=== PATIENT | male | born 1955 | race Caucasian/White ===

== ENCOUNTER 2018-08-08 22:43 | Emergency (ER) | payer OTHER ==
--- NOTE | 2018-08-08 22:58 | ER Document Report ---
ED General - General Chief Complaint: Chest Pain > 30 Stated Complaint: CHEST PAIN Time Seen by Provider: 08/08/18 22:54 Notes: Patient is a 63-year-old male with a history of coronary disease as well as aortic aneurysm. He has a history of a 4.6 cm aortic [facility] No surgery on in the past. He does have history of coronary bypass surgery. They did 2 vessel bypass but was told that he probably needs three-ves ingrid bypass but they are unable to graft harvesting of graft to do this. Presents with severe chest pain is starts substernally and radiates to his back and down his right arm. Says feels similar to his previous heart attack. He says it started yesterday but became much more severe today and is unrelenting. He has not taken nitro at home. He is noncompliant with his medications. He is on clopidogrel but does not take it. He is on propanolol. He said he did take this today. TRAVEL OUTSIDE OF THE [place] IN LAST 30 DAYS: No - Related Data Allergies/Adverse Reactions: No Known Allergies Allergy (Verified 10/03/15 02:41) Past Medical History - Social History Smoking Status: Current Every Day Smoker Frequency of alcohol use: None Drug Abuse: None Family History: Reviewed & Not Pertinent - Past Medical History Cardiac Medical History: Reports: Hx Coronary Artery Disease, Hx DVT, Hx Heart Attack, Hx Hypercholesterolemia, Hx Hypertension, Hx Peripheral Vascular Disease Past Surgical History: Reports: Hx Coronary Artery Bypass Graft, Hx Open Heart Surgery - Immunizations Hx Diphtheria, Pertussis, Tetanus Vaccination: Yes Review of Systems - Review of Systems Notes: My Normal Review Basic REVIEW OF SYSTEMS: CONSTITUTIONAL : Denies fever, chills, or sweats. Denies recent illness. Cardiovascular: Severe chest pain rating to the back. RESPIRATORY: Denies cough, cold, or chest congestion. Denies shortness of breath, difficulty breathing, or wheezing. GASTROINTESTINAL: Denies abdominal pain. Denies nausea, vomiting, or diarrhea. Denies constipation. Last BM: GENITOURINARY: Denies difficulty urinating, painful urination, burning, frequency, or blood in urine. MUSCULOSKELETAL: Denies neck or back pain or joint pain or swelling. SKIN: Denies rash or skin lesions. NEUROLOGICAL: Denies altered mental status or loss of consciousness. Denies headache. Denies weakness or paralysis or loss of use of either side. Denies problems with gait or speech. Denies sensory or motor loss. ALL OTHER SYSTEMS REVIEWED AND NEGATIVE. Physical Exam - Vital signs Vitals: Temp Pulse Resp BP Pulse Ox 97.8 F 81 20 180/120 H 99 08/08/18 22:47 08/08/18 22:47 08/08/18 22:47 08/08/18 22:47 08/08/18 22:47 - Notes Notes: General Appearance: Well nourished, alert, cooperative, no acute distress, moderate obvious discomfort. Vitals: reviewed, See vital signs table. Eyes: PERRL, EOMI, Conjuctiva clear Chest wall: No reproducible pain to palpation of chest wall. Sternal scar from previous coronary bypass surgery. Mouth: No decreasd moisture Lungs: No wheezing, No rales, No rhonci, No accessory muscle use, good air exchange bilaterally. Heart: Normal rate, Regular rythm, No murmur, no rub Abdomen: Normal BS, soft, No rigidity, No abdominal tenderness, No guarding, no rebound Extremities: good pulses in all extremities, no swelling or tenderness in the extremities, no edema. Skin: warm, dry, appropriate color, no rash Neuro: speech clear, oriented x 3, normal affect, responds appropriately to questions. Course - Re-evaluation Re-evalutation: 08/08/18 23:07 Patient has a history of a 4.6 cm aortic aneurysm. He has pain in his chest rating to his back. I have already spoke with iv technician they have informed him that I do not want to wait on labs and want him to go straight to CT scanner. Nurses placing antecubital IV now and the patient will be taken straight to CT scan to rule out dissection. 08/08/18 23:[address] scan does not show evidence of obvious dissection. He is had some slight improvement the nitro however he still in severe pain is still writhing in the bed and pain and therefore I will give him some morphine to help calm down his pain. Once I get the official read that there is no evidence of dissection we will give him a dose of aspirin. 08/09/18 00:03 Patient continues to have a lot of pain on exam. His blood pressure continues to be high. I will switch him over to a nitro drip. I will order more pain medication. His CT scans is negative for dissection or rupture and therefore aborted aspirin. His aneurysm is now 5 cm. I will start the nitro drip and see if this gets better control of his blood pressure as well as his pain. Plan to see how he responds that I will call and speak with [facility] about transfer to fill the patient's better served at a facility that has both cardiac cath capabilities as well as vascular to further evaluate his aneurysm as a potential cause of his pain. 08/09/18 00:33 Patient's pain is improving with the nitro drip. Blood pressure is steadily improving as well. I will continue monitor patient make sure his blood pressure and pain continue to improve. 08/09/18 01:11 I have called [facility] and waiting to hear back from the hospitalist. 08/09/18 01:24 On reevaluation patient continues to feel improved with nitro drip. I did call and speak with Dr. Michaud, [facility], who agrees to accept the patient. We do suspect that there will be her weight. I think it transfer is appropriate for this patient's patient does have an enlarging aortic aneurysm and also has chest pain is only controlled with a nitro drip. This puts him outside of our criteria to be able to keep and do a cath here as intractable chest pain is an indication for transfer our hospital's Criteria as he is high risk and will likely have a positive heart catheterization. I will order repeat troponin. We will continue monitor patient closely. If troponin elevates then will consider given Lovenox. 08/09/18 03:52 I spoke with [facility] to patient's repeat troponin is come back elevated. I updated make them aware the troponin is now significantly elevated. Patient's pain seems to continue to be well controlled with the nitro. Blood pressure continues to be improved with nitro drip. Diastolic pressure still little high but systolic pressure is much improved and has been staying mainly in the 130s. I have ordered Lovenox. Have ordered scheduled clopidogrel. Of ordered metoprolol to keep his heart rate under control. I have also ordered daily aspirin as well as simvastatin. I informed the patient and his of the plan and they are agreeable to it. 08/09/18 04:27 [facility] continues to say they would be a long delay before transfer. I therefore called [facility]. Patient had his previous coronary bypass surgery at [facility]. The says she is that she would be happy for him to go to [facility]. I spoke with the cardiac connection transfer center. They call me back and said the patient has been accepted by Dr. Bienvenido Castillo and they already have a bed assignment. Once I know that we have arranged for transport I will called [facility] cancel him off the waiting list there. 08/09/18 04:42 Patient started having some recurrence of pain. Nitro drip is already 65 mcg/minute. I will give a small dose of morphine. Says his pain is still nothing like it was when he first arrived however I want to keep his pain under control therefore give him small dose of morphine so he stays relaxed. 08/09/18 05:58 She is pain is improved. He is resting comfortably. Heart rate is 94. He is due for metoprolol dose at 8 AM. I did order a repeat troponin to be drawn in approximately an hour. Patient has Lovenox and Plavix orders written. He is scheduled to have transport to be here at 9:30 AM. Patient currently stable and will continue to be closely monitored until transport arrives. Dictation of this chart was performed using voice recognition software; therefore, there may be some unintended grammatical errors. - Vital Signs Vital signs: Temp Pulse Resp BP Pulse Ox 98.3 F 81 11 L 143/104 H 96 08/09/18 02:49 08/08/18 22:47 08/09/18 05:30 08/09/18 05:30 08/09/18 05:30 - Laboratory Result Diagrams: 08/08/18 23:09 08/08/18 23:09 Laboratory results interpreted by me: 08/08/18 08/08/18 23:09 23:09 WBC 13.8 H Chloride 108 H Glucose 134 H - EKG Interpretation by Me Additional EKG results interpreted by me: 08/08/18 22:56 EKG is reviewed and interpreted by me. EKG shows sinus rhythm with a rate of 85 bpm. Patient has a new right bundle branch block and left anterior fascicular block in comparison to his old EKG from October 03, 2015. ST segment changes are as expected with these blocks. VT interval is within normal range. QRS duration and QT intervals are prolonged. 08/09/18 01:32 EKG #2 was reviewed and interpreted by me. EKG shows sinus rhythm with rate of 87 bpm. Patient still has right bundle branch block but left anterior fascicular block appears improved. No concerning no ST segment changes. VT interval is within normal range. QRS duration is improving but still prolonged as expected with a right bundle branch block. QTc interval is prolonged. Critical Care Note - Critical Care Note Total time excluding time spent on procedures (mins): 50 Comments: Critical care time for this patient not including time spent in procedures approximately 50 minutes due to frequent re-evaluations, management of an STEMI, management of hypertension, management of ongoing chest pain. Discharge - Discharge Clinical Impression: NSTEMI (non-ST elevated myocardial infarction) Chest pain Qualifiers: Chest pain type: unspecified Qualified Code(s): R07.9 - Chest pain, unspecified Hypertension Qualifiers: Hypertension type: unspecified Qualified Code(s): I10 - Essential (primary) hypertension Aortic aneurysm Qualifiers: Aortic location: abdominal aorta Presence of rupture: without rupture Qualified Code(s): I71.4 - Abdominal aortic aneurysm, without rupture Condition: Stable Disposition: [facility] Referrals: MARLENE JOHN MD [Primary Care Provider] - Follow up as needed
[2018-08-08] MEDS ORDERED: NITROGLYCERIN 0.4 MG/TAB 25 TAB/BOTTLE ONE (23:03)
[2018-08-08] MEDS ORDERED: NORMAL SALINE 1000 ML 1,000 ML IV ONE (23:05)
[2018-08-08] MEDS ORDERED: NITROGLYCERIN 0.4 MG/TAB 25 TAB/BOTTLE SL PRN (23:05)
[2018-08-08] MEDS ORDERED: NITROGLYCERIN 2% OINTMENT 1 GM PACKET TP ONE (23:05)
[2018-08-08 23:26] LABS: ABSOLUTE BASOPHILS # (AUTO) 0.1 10^3/uL (0.0-0.2); ABSOLUTE EOSINOPHILS # (AUTO) 0.3 10^3/uL (0.0-0.6); ABSOLUTE LYMPHOCYTES (AUTO) 4.2 10^3/uL (0.5-4.7); ABSOLUTE MONOCYTES (AUTO) 1.2 10^3/uL (0.1-1.4); HEMATOCRIT 44.9 % (37.9-51.0); HEMOGLOBIN 15.4 g/dL (13.5-17.0); LYMPHOCYTES % (AUTO) 30.4 % (13-45); MEAN CORPUSCULAR HGB CONC 34.3 g/dL (32.0-36.0); MEAN CORPUSCULAR VOLUME 93 fl (80-97); PLATELET COUNT 246 10^3/uL (150-450); RED BLOOD COUNT 4.81 10^6/uL (4.35-5.55); RED CELL DISTRIBUTION WIDTH 13.5 % (11.5-14.0); SEGMENTED NEUTROPHILS % (AUTO) 57.6 % (42-78); TOTAL CELLS COUNTED % (AUTO) 100 %; WHITE BLOOD COUNT 13.8 10^3/uL (4.0-10.5)
[2018-08-08] MEDS ORDERED: MORPHINE SULFATE 10 MG/ML INJ IV ONE (23:29)
[2018-08-08 23:37] LABS: ALANINE AMINOTRANSFERASE 46 U/L (21-72); ALBUMIN 4.4 g/dL (3.5-5.0); ALKALINE PHOSPHATASE 74 U/L (38-126); ANION GAP 8 (5-19); ASPARTATE AMINO TRANSFERASE 33 U/L (17-59); BILIRUBIN,DIRECT 0.2 mg/dL (0.0-0.4); BILIRUBIN,TOTAL 0.8 mg/dL (0.2-1.3); BLOOD UREA NITROGEN 15 mg/dL (7-20); CARBON DIOXIDE 26 mmol/L (22-30); CHLORIDE 108 mmol/L (98-107); GLUCOSE 134 mg/dL (75-110); SODIUM 141.9 mmol/L (137-145); TOTAL PROTEIN 7.1 g/dL (6.3-8.2)
--- NOTE | 2018-08-08 23:54 | RADIOLOGY REPORT (SQ) ---
EXAM DESCRIPTION: CT CHEST ANGIOGRAPHY WITHOUT THEN WITH IV CONTRAST, CT ABDOMEN PELVIS WITHOUT THEN WITH IV CONTRAST COMPLETED DATE/TME: 08/08/2018 23:04 CLINICAL HISTORY: 63 years Male, R/O aortic disection Comparison: None. Technique: Pre and post IV contrast. Coronal and sagittal reformat. 3d reconstruction. This exam was performed according to our departmental dose-optimization program, which includes automated exposure control, adjustment of the mA and/or kV according to patient size and/or use of iterative reconstruction technique.[facility]: Dose Right [facility]: CareDose [facility]: Dose Right [facility]: Teradose 4D [facility]: MaulSoup LIMITATIONS: None Findings: 2.3 cm, 35-HU exophytic left renal lesion probably due to a hemorrhagic cyst; differential diagnosis includes renal neoplasm. Recommend further evaluation with multiphase contrast CT or MRI of the renal system. Infrarenal abdominal aortic aneurysm measures 5.0 x 4.9 cm and transverse diameters. Vascular consultation recommended. Right external iliac arterial stent. Right common iliac arterial stent. Vascular system appears intact. No evidence of dissection, or occlusion. No significant embolus. No active hemorrhage/hematoma. No pulmonary embolus. No right ventricular strain. Clear lungs. Punctate pancreatic calcification consistent with chronic pancreatitis. Sternotomy. Coronary arterial calcification. Normal appendix. Atherosclerosis. Likely benign, low-attenuation hepatic lesion(s) not definitively characterized. Colonic diverticulosis. Degenerative disc disease. Bilateral perinephric fat stranding, nonspecific. Inferior neck, axillae, mediastinum, lungs, airway, lymphatics, heart, abdomen, pelvis, and musculoskeleton appear otherwise unremarkable. Impression: 1. Infrarenal abdominal aortic aneurysm measures 5.0 x 4.9 cm and transverse diameters. No dissection. Vascular consultation recommended. 2. No pulmonary embolus. 3. A 2.3 cm, 35-HU exophytic left renal lesion may indicate a hemorrhagic cyst or other neoplasm. Recommend further evaluation with multiphase contrast CT or MRI of the renal system.
[2018-08-08] MEDS ORDERED: ASPIRIN 325 MG TABLET PO ONE (23:58)
[2018-08-09] MEDS ORDERED: NITROGLYCERIN/D5W 50 MG/250 ML RTUINJ IV PRN (00:02)
[2018-08-09] MEDS ORDERED: MORPHINE SULFATE 10 MG/ML INJ IV ONE ×3 (00:02→08:03)
[2018-08-09] MEDS ORDERED: CLOPIDOGREL BISULFATE 75 MG TABLET PO ONE (01:36)
[2018-08-09] MEDS ORDERED: ENOXAPARIN SODIUM INJ 80 MG/0.8 ML DISP.SYRIN SUBCUT SCH ×2 (03:30→04:00)
[2018-08-09] MEDS ORDERED: SIMVASTATIN 40 MG TABLET PO SCH ×2 (04:00→22:00)
[2018-08-09] MEDS ORDERED: SIMVASTATIN 40 MG TABLET PO ONE (04:00)
--- NOTE | 2018-08-09 07:20 | ER Document Report ---
Doctor's Note Notes: 08/09/18 07:18 Contacted [facility] to update related to patient's care, repeat troponin this morning is 17.6. Evaluated the patient at the bedside, he is comfortable well-appearing despite his persistently rising troponin. He is having an EKG repeated this morning. He is currently on a nitroglycerin infusion at a rate of 65 mics. They are doing a weather check at this time, reportedly they will perform a weather check and make a decision as to whether or not to fly this patient. If patient is unable to be flown he will be rapidly transported via ground. We will continue to monitor and reassess patient. 08/09/18 08:00 Patient to be transported via air, following weather check they have agreed that this patient will be flown. Currently this patient is on nitroglycerin infusion, he is on oxygen via nasal cannula. He has apparently stable for transport. He does risk arrhythmia worsening heart attack or other issue in transport.
--- NOTE | 2018-08-09 07:49 | EKG REPORT ---
SEVERITY:- ABNORMAL ECG - SINUS RHYTHM ATRIAL PREMATURE COMPLEX RIGHT BUNDLE BRANCH BLOCK AND LAFB = NEW NONSPECIFIC ST-T CHANGES DIFFUSE, NEW CLINICAL CORRELATION NEEDED. : Confirmed by: Beltran Vanegas MD 09-Aug-2018 07:48:33
--- NOTE | 2018-08-09 07:50 | EKG REPORT ---
SEVERITY:- ABNORMAL ECG - SINUS RHYTHM MULTIPLE ATRIAL PREMATURE COMPLEXES PROBABLE LEFT ATRIAL ABNORMALITY RBBB AND LAFB = NEW NONSPECIFIC ST-T CHANGES , DIFFUSE, NEW, COMPARED TO 10/01/15 EKG : Confirmed by: Beltran Vanegas MD 09-Aug-2018 07:50:10
[2018-08-09 08:16] VITALS: BP 132/95
[2018-08-09] MEDS ORDERED: ASPIRIN 325 MG TABLET PO SCH (10:00)
[2018-08-09] MEDS ORDERED: METOPROLOL TARTRATE 25 MG TABLET PO SCH (10:00)
[2018-08-09] MEDS ORDERED: CLOPIDOGREL BISULFATE 75 MG TABLET PO SCH (18:00)
== END 2018-08-09 08:27 | disposition short-term general hospital (02) ==
LOC: ER 22:43
DX: I21.4 Non-ST elevation (NSTEMI) myocardial infarction (principal); R07.9 Chest pain, unspecified; I10 Essential (primary) hypertension; I71.4 Abdominal aortic aneurysm, without rupture; I25.10 Atherosclerotic heart disease of native coronary artery without angina pectoris; E78.00 Pure hypercholesterolemia, unspecified; I25.2 Old myocardial infarction; Z86.718 Personal history of other venous thrombosis and embolism; Z95.1 Presence of aortocoronary bypass graft
CPT/HCPCS: 93005 ×2; 96376; 99291; 96372; 96361; 96375; 96365; 96366; 36415; 85025; 80053; 84484; 71275; 74174; 93010 ×2; J2270 ×2; J3490; J7030; J1650

== ENCOUNTER 2018-08-22 20:14 | Emergency (ER) | payer OTHER ==
[2018-08-22] MEDS ORDERED: FENTANYL CITRATE INJ/PF 100 MCG/2 ML AMPUL ONE (20:23)
[2018-08-22] MEDS ORDERED: MAGNESIUM SULFATE/D5W 0 GM/0 ML RTUPB IV ONE (20:23)
[2018-08-22] MEDS ORDERED: ASPIRIN 81 MG TABLET, CHEWABLE PO ONE (20:32)
--- NOTE | 2018-08-22 20:39 | ER Document Report ---
ED General - General Stated Complaint: AICD DISCHARGE Time Seen by Provider: 08/22/18 20:19 TRAVEL OUTSIDE OF THE [place] IN LAST 30 DAYS: No - HPI Notes: Patient is a 63-year-old male that presents to the emergency department for ch ief complaint of AICD firing. Patient states that he has been defibrillated twice today, once last night and once the day before. He had a pacemaker placed at [facility] last week after he had myocardial infarction which led to cardiac arrest. Patient is not sure what medications he is on. He is not sure if he is on any blood thinners. He states he is taking all the medicines prescribed to him as directed. He states he is having pain in the left side of his chest when the pacemaker fires. He was denying any pain in his chest otherwise. He states prior to defibrillation he starts to feel lightheaded and near syncopal. Patient states he had cardiac catheterization last week but stenting was not an option because he had small vessel disease. Past Medical History: Hypertension, hyperlipidemia, CAD Past Surgical History: CABG x2 Social History: Reviewed in chart Family History: Reviewed and noncontributory for presenting illness Allergies: Reviewed, see documented allergy list. REVIEW OF SYSTEMS: CONSTITUTIONAL : No fever No chills No diaphoresis No recent illness EENT: No vision changes No congestion No sore throat CARDIOVASCULAR: chest pain No palpitations RESPIRATORY: No shortness of breath No cough No difficulty breathing GASTROINTESTINAL: No abdominal pain No nausea No vomiting No diarrhea GENITOURINARY: No dysuria No hematuria No difficulty urinating MUSCULOSKELETAL: No back pain No leg pain No arm pain SKIN: No rashes No lesions LYMPHATIC: No swollen, enlarged glands. NEUROLOGICAL: No lightheadedness No headache No weakness No paresthesias PSYCHIATRIC: No anxiety No depression PHYSICAL EXAMINATION: Vital signs reviewed, nursing noted reviewed. GENERAL: Well-appearing, well-nourished and in no acute distress. HEAD: Atraumatic, normocephalic. EYES: Eyes appear normal, extraocular movements intact, sclera anicteric, conjunctiva are normal. ENT: nares patent, oropharynx clear without exudates. Moist mucous membranes. NECK: Normal range of motion, supple without lymphadenopathy LUNGS: Breath sounds clear to auscultation bilaterally and equal. No wheezes rales or rhonchi. HEART: Regular rate and rhythm without murmurs ABDOMEN: Soft, nontender, normoactive bowel sounds. No rebound, guarding, or rigidity. No masses appreciated. EXTREMITIES: Nontender, good range of motion, no pitting or edema. NEUROLOGICAL: No focal neurological deficits. Moves all extremities spontaneously Motor and sensory grossly intact on exam. PSYCH: Anxious SKIN: Warm, Dry, normal turgor, no rashes or lesions noted on exposed skin - Related Data Allergies/Adverse Reactions: No Known Allergies Allergy (Verified 10/03/15 02:41) Past Medical History - Social History Smoking Status: Former Smoker Family History: Reviewed & Not Pertinent - Past Medical History Cardiac Medical History: Reports: Hx Coronary Artery Disease, Hx DVT, Hx Heart Attack, Hx Hypercholesterolemia, Hx Hypertension, Hx Peripheral Vascular Disease Renal/ Medical History: Denies: Hx Peritoneal Dialysis Past Surgical History: Reports: Hx Coronary Artery Bypass Graft, Hx Open Heart Surgery - Immunizations Hx Diphtheria, Pertussis, Tetanus Vaccination: Yes Physical Exam - Vital signs Vitals: Resp Pulse Ox 34 H 96 08/22/18 20:21 08/22/18 20:21 Course - Re-evaluation Re-evalutation: 08/22/18 20:35 Vitals reviewed. Nursing notes reviewed. Patient had an episode of torsades while in the emergency room which was defibrillated by his pacemaker back into normal sinus rhythm. He did not completely lose consciousness during this episode. Patient was given fentanyl for his discomfort with AICD firing. Patient's EKG shows ST depressions laterally which is not significantly changed from his prior EKG. There is no ST elevation. Because of his recent DC with cardiac arrest and multiple defibrillations he will be transferred back to [facility] for further cardiac care. Patient was started on magnesium for his torsades. 08/22/18 20:36 Patient's case was discussed with cardiology at [facility] who accepts patient for transfer. Admitting physician Dr. Davidson. 08/22/18 21:25 Patient's troponin returned at 1.5 and he was started on heparin infusion. He is currently not complaining of chest pain. Laboratory 08/22/18 08/22/18 08/22/18 20:30 20:30 20:30 WBC 11.0 H RBC 3.94 L Hgb 12.7 L Hct 37.0 L MCV 94 MCH 32.2 MCHC 34.3 RDW 13.3 Plt Count 341 Seg Neutrophils % 55.8 Lymphocytes % 35.3 Monocytes % 7.0 Eosinophils % 1.2 Basophils % 0.7 Absolute Neutrophils 6.1 Absolute Lymphocytes 3.9 Absolute Monocytes 0.8 Absolute Eosinophils 0.1 Absolute Basophils 0.1 Sodium 141.5 Potassium 3.7 Chloride 104 Carbon Dioxide 31 H Anion Gap 7 BUN 15 Creatinine 0.88 Est GFR ( Amer) > 60 Est GFR (Non-Af Amer) > 60 Glucose 145 H Calcium 9.5 Magnesium 2.4 H Troponin I 1.510 Chest X-Ray 08/22/18 20:19 IMPRESSION: No acute finding. copyright 2010 [employer]- All Rights Reserved 08/22/18 23:10 Patient has not had any further dysrhythmia. He is still resting comfortably. He is stable for transport. - Vital Signs Vital signs: Temp Pulse Resp BP Pulse Ox 98.1 F 12 112/84 96 08/22/18 21:53 08/22/18 21:01 08/22/18 21:00 08/22/18 21:01 - Laboratory Result Diagrams: 08/22/18 20:30 08/22/18 20:30 Laboratory results interpreted by me: 08/22/18 08/22/18 20:30 20:30 WBC 11.0 H RBC 3.94 L Hgb 12.7 L Hct 37.0 L Carbon Dioxide 31 H Glucose 145 H Magnesium 2.4 H - EKG Interpretation by Me Additional EKG results interpreted by me: 08/22/18 20:36 Interpreted by myself 2022: Normal sinus rhythm, rate 90, right axis, no ectopy, right bundle branch block, ST depression V3-V6, no ST elevation Critical Care Note - Critical Care Note Total time excluding time spent on procedures (mins): 38 Comments: Dysrhythmia requiring intervention. Frequent re-evaluations. Potential for cardiovascular decompensation. Discussion with medical office technician. Discharge - Discharge Clinical Impression: Torsades de pointes Chest pain Qualifiers: Chest pain type: unspecified Qualified Code(s): R07.9 - Chest pain, unspecified Condition: Stable Disposition: [facility]
[2018-08-22 20:47] LABS: ABSOLUTE BASOPHILS # (AUTO) 0.1 10^3/uL (0.0-0.2); ABSOLUTE EOSINOPHILS # (AUTO) 0.1 10^3/uL (0.0-0.6); ABSOLUTE LYMPHOCYTES (AUTO) 3.9 10^3/uL (0.5-4.7); ABSOLUTE MONOCYTES (AUTO) 0.8 10^3/uL (0.1-1.4); ABSOLUTE NEUT (AUTO) 6.1 10^3/uL (1.7-8.2); BASOPHILS % (AUTO) 0.7 % (0-2); EOSINOPHILS % (AUTO) 1.2 % (0-6); HEMOGLOBIN 12.7 g/dL (13.5-17.0); LYMPHOCYTES % (AUTO) 35.3 % (13-45); MEAN CORPUSCULAR HEMOGLOBIN 32.2 pg (27.0-33.4); MEAN CORPUSCULAR HGB CONC 34.3 g/dL (32.0-36.0); MEAN CORPUSCULAR VOLUME 94 fl (80-97); PLATELET COUNT 341 10^3/uL (150-450); RED BLOOD COUNT 3.94 10^6/uL (4.35-5.55); RED CELL DISTRIBUTION WIDTH 13.3 % (11.5-14.0); SEGMENTED NEUTROPHILS % (AUTO) 55.8 % (42-78); TOTAL CELLS COUNTED % (AUTO) 100 %
[2018-08-22 20:56] LABS: ANION GAP 7 (5-19); BLOOD UREA NITROGEN 15 mg/dL (7-20); CALCIUM 9.5 mg/dL (8.4-10.2); CARBON DIOXIDE 31 mmol/L (22-30); CHLORIDE 104 mmol/L (98-107); GLUCOSE 145 mg/dL (75-110); POTASSIUM 3.7 mmol/L (3.6-5.0); SODIUM 141.5 mmol/L (137-145)
[2018-08-22] MEDS: MAGNESIUM SULFATE/D5W 1 GM/100 ML RTUPB IV SCH ×2 (21:10→21:37)
--- NOTE | 2018-08-22 21:10 | RADIOLOGY REPORT (SQ) ---
EXAM DESCRIPTION: XR CHEST 1 VIEW COMPLETED DATE/TME: 08/22/2018 20:19 CLINICAL HISTORY: 63 years, Male, AICD firing COMPARISON: X-ray chest 10/03/2015 NUMBER OF VIEWS: TECHNIQUE: LIMITATIONS: None. FINDINGS: Since the prior chest x-ray, an AICD has been placed. The heart is top normal in size. No evidence of heart failure. No evidence of pulmonary infiltrate or pleural effusion. There is tortuosity of the thoracic aorta. IMPRESSION: No acute finding. copyright 2010 [employer]- All Rights Reserved
[2018-08-22] MEDS ORDERED: HEPARIN SODIUM,PORCINE/D5W 25,000 UNIT/250 ML RTUINJ IV PRN (21:24)
[2018-08-22] MEDS ORDERED: HEPARIN SOD (PORCINE) 1,000 UNIT/ML 10 ML VIAL IV ONE (21:24)
[2018-08-22 21:39] LABS: INTERNATIONAL RATION (INR) 1.02; PROTHROMBIN TIME 13.9 SEC (11.4-15.4)
[2018-08-22 21:40] LABS: PARTIAL THROMBOPLASTIN TIME 34.4 SEC (23.5-35.8)
[2018-08-22] MEDS ORDERED: FENTANYL CITRATE INJ/PF 100 MCG/2 ML AMPUL IV ONE (23:09)
[2018-08-22 23:55] VITALS: BP 117/90
[2018-08-23 00:09] LABS: APPEARANCE,URINE SLIGHTLY-CLOUDY; BILIRUBIN,URINE NEGATIVE (NEGATIVE); COLOR,URINE YELLOW; GLUCOSE, URINE NEGATIVE (NEGATIVE); KETONES,URINE NEGATIVE (NEGATIVE); NITRITE,URINE NEGATIVE (NEGATIVE); PROTEIN,URINE NEGATIVE (NEGATIVE); URINE SPECIFIC GRAVITY 1.023; UROBILINOGEN,URINE NEGATIVE mg/dL (<2.0)
[2018-08-23 00:10] LABS: AMORPHOUS SEDIMENT,URINE TRACE /HPF; LEUKOCYTE ESTERASE,URINE NEGATIVE (NEGATIVE)
[2018-08-23] MEDS ORDERED: HEPARIN SOD (PORCINE) 1,000 UNIT/ML 10 ML VIAL IV PRN (00:24)
--- NOTE | 2018-08-23 08:23 | EKG REPORT ---
SEVERITY:- ABNORMAL ECG - SINUS RHYTHM RIGHT ATRIAL ABNORMALITY RIGHT BUNDLE BRANCH BLOCK PROBABLSEPTAL INFARCT, OLD : Confirmed by: Jenelle Tellez MD 23-Aug-2018 08:22:37
== END 2018-08-22 23:50 | disposition short-term general hospital (02) ==
LOC: ER 20:14
DX: I47.2 Ventricular tachycardia (principal); R07.9 Chest pain, unspecified; Z95.810 Presence of automatic (implantable) cardiac defibrillator; I25.2 Old myocardial infarction; Z95.1 Presence of aortocoronary bypass graft
CPT/HCPCS: 93005; 96376; 99291; 96375; 96365; 96366; 96367; 36415; 83735; 85025; 85610; 85730; 80048; 81001; 84484; 71045; 93010; J1644 ×2; J3010; J3475

== ENCOUNTER 2019-10-09 16:44 | Emergency (ER) | payer OTHER ==
--- NOTE | 2019-10-09 17:05 | ER Document Report ---
ED Medical Screen (RME) - General Chief Complaint: Blood Pressure Problem Stated Complaint: LOW BLOOD PRESSURE Time Seen by Provider: 10/09/19 16:50 Primary Care Provider: MARLENE JOHN MD [Primary Care Provider] - Follow up as needed TRAVEL OUTSIDE OF THE [place] IN LAST 30 DAYS: No - HPI Notes: 10/09/19 17:02 64-year-old male with significant past medical history for hypertension, acute [place] x2, peripheral vascular disease, double coronary bypass, AICD placement to the emergency department with with complaints of low blood pressure today. Apparently yesterday he began to feel poorly with a cough and lethargy and fatigue. He has been laying down for most of the day and resting. As he started to get up today and move around he felt like he was getting dizzy and li ke he was going to pass out. Thus, they tested his blood pressure at home and found his blood pressure to be 66 systolic. He states that with his blood pressure controlled he usually is about 110 systolic. He states that when he gets up and moves around he does feel lightheaded. He denies any chest pain or shortness of breath. He states that he did have an increase in his Entresto but that was about one month ago. I performed a brief medical screening exam on the patient determined that the patient needs further evaluation and management by main side provider. I have placed initial orders to help expedite care. - Related Data Allergies/Adverse Reactions: No Known Allergies Allergy (Verified 10/09/19 16:50) Home Medications: amiodarone. asa. plavix. lasix. metoprolol succ. mexiletine. sacubitril/valsartan. sertraline. spironolactone. melatonin. probiotics Past Medical History - Social History Chew tobacco use (# tins/day): No Frequency of alcohol use: None Drug Abuse: None - Past Medical History Cardiac Medical History: Reports: Hx Coronary Artery Disease, Hx DVT, Hx Heart Attack, Hx Hypercholesterolemia, Hx Hypertension, Hx Peripheral Vascular Disease Renal/ Medical History: Denies: Hx Peritoneal Dialysis Past Surgical History: Reports: Hx Coronary Artery Bypass Graft, Hx Open Heart Surgery - Immunizations Hx Diphtheria, Pertussis, Tetanus Vaccination: Yes Physical Exam - Vital signs Vitals: Temp Pulse Resp BP Pulse Ox 97.4 F 75 16 95/63 L 100 10/09/19 16:48 10/09/19 16:48 10/09/19 16:48 10/09/19 16:48 10/09/19 16:48 Course - Vital Signs Vital signs: Temp Pulse Resp BP Pulse Ox 97.4 F 75 16 95/63 L 100 10/09/19 16:48 10/09/19 16:48 10/09/19 16:48 10/09/19 16:48 10/09/19 16:48 Doctor's Discharge - Discharge Referrals: MARLENE JOHN MD [Primary Care Provider] - Follow up as needed
--- NOTE | 2019-10-09 17:54 | RADIOLOGY REPORT (SQ) ---
EXAM DESCRIPTION: CHEST SINGLE VIEW COMPLETED DATE/TIME: 10/09/2019 4:12 pm REASON FOR STUDY: cough, hypotension COMPARISON: 08/22/2018 EXAM PARAMETERS: NUMBER OF VIEWS: One view. TECHNIQUE: Single frontal radiographic view of the chest acquired. RADIATION DOSE: NA LIMITATIONS: None. FINDINGS: LUNGS AND PLEURA: No opacities, masses or pneumothorax. No pleural effusion. MEDIASTINUM AND HILAR STRUCTURES: No masses. Contour normal. HEART AND VASCULAR STRUCTURES: Postoperative changes of prior CABG, stable. No pulmonary vascular co ngestion. BONES: No acute findings. HARDWARE: Left infraclavicular AICD with intact lead wires. OTHER: No other significant finding. IMPRESSION: NO ACUTE RADIOGRAPHIC FINDING IN THE CHEST. TECHNICAL DOCUMENTATION: JOB ID: [id number] 2010 [employer]- All Rights Reserved Reading location - IP/workstation name: [email or web address]
[2019-10-09 18:26] LABS: ABSOLUTE BASOPHILS # (AUTO) 0.1 10^3/uL (0.0-0.2); ABSOLUTE EOSINOPHILS # (AUTO) 0.4 10^3/uL (0.0-0.6); ABSOLUTE LYMPHOCYTES (AUTO) 2.1 10^3/uL (0.5-4.7); ABSOLUTE MONOCYTES (AUTO) 1.1 10^3/uL (0.1-1.4); ABSOLUTE NEUT (AUTO) 5.3 10^3/uL (1.7-8.2); BASOPHILS % (AUTO) 1.3 % (0-2); EOSINOPHILS % (AUTO) 3.9 % (0-6); HEMATOCRIT 35.2 % (37.9-51.0); HEMOGLOBIN 12.8 g/dL (13.5-17.0); LYMPHOCYTES % (AUTO) 23.2 % (13-45); MEAN CORPUSCULAR HEMOGLOBIN 34.1 pg (27.0-33.4); MEAN CORPUSCULAR HGB CONC 36.3 g/dL (32.0-36.0); MEAN CORPUSCULAR VOLUME 94 fl (80-97); MONOCYTES % (AUTO) 12.2 % (3-13); PLATELET COUNT 207 10^3/uL (150-450); RED BLOOD COUNT 3.74 10^6/uL (4.35-5.55); RED CELL DISTRIBUTION WIDTH 14.1 % (11.5-14.0); SEGMENTED NEUTROPHILS % (AUTO) 59.4 % (42-78); TOTAL CELLS COUNTED % (AUTO) 100 %; WHITE BLOOD COUNT 8.9 10^3/uL (4.0-10.5)
[2019-10-09 18:50] LABS: ALBUMIN 4.2 g/dL (3.5-5.0); ALKALINE PHOSPHATASE 56 U/L (38-126); ANION GAP 11 (5-19); ASPARTATE AMINO TRANSFERASE 41 U/L (17-59); BILIRUBIN,DIRECT 0.3 mg/dL (0.0-0.4); BILIRUBIN,TOTAL 0.9 mg/dL (0.2-1.3); BLOOD UREA NITROGEN 25 mg/dL (7-20); CALCIUM 9.3 mg/dL (8.4-10.2); CARBON DIOXIDE 24 mmol/L (22-30); CHLORIDE 106 mmol/L (98-107); GLUCOSE 94 mg/dL (75-110); POTASSIUM 4.1 mmol/L (3.6-5.0); TOTAL PROTEIN 7.4 g/dL (6.3-8.2)
--- NOTE | 2019-10-09 20:23 | ER Document Report ---
ED General - General Chief Complaint: Blood Pressure Problem Stated Complaint: LOW BLOOD PRESSURE Time Seen by Provider: 10/09/19 16:50 Primary Care Provider: MARLENE JOHN MD [Primary Care Provider] - Follow up as needed Notes: Patient is a 64-year-old male that comes to the emergency department for chief complaint of lightheadedness and low blood pressure. He states that he started feeling lightheaded about 4 PM, and checked his blood pressure several times and he states that it was ranging in about 70 systolic. He denies passing out, chest pain, vomiting or diarrhea, headache, focal numbness or weakness. He states he is eaten today without difficulty. He states he has a mild head cold that started yesterday with some cough and congestion but denies any other symptoms. Patient has an extensive medical history including CABG (double bypass), PR x2, AICD, hypertension, peripheral vascular disease. He is on amiodarone, mexiletine, metoprolol in the evening, Entresto in the morning and evening, Lasix, spironolactone, aspirin, Plavix. He states that his Entresto was increased at the end of last month. He follows with [facility] and cardiology. Patient denies any current complaints. Patient states that he skipped his Entresto and metoprolol evening doses that were due just recently. TRAVEL OUTSIDE OF THE [place] IN LAST 30 DAYS: No - Related Data Allergies/Adverse Reactions: No Known Allergies Allergy (Verified 10/09/19 16:50) Home Medications: amiodarone. asa. plavix. lasix. metoprolol succ. mexiletine. sacubitril/valsartan. sertraline. spironolactone. melatonin. probiotics Past Medical History - General Information source: Patient - Social History Smoking Status: Never Smoker Chew tobacco use (# tins/day): No Frequency of alcohol use: None Drug Abuse: None Lives with: Family Family History: Reviewed & Not Pertinent Patient has suicidal ideation: No Patient has homicidal ideation: No - Past Medical History Cardiac Medical History: Reports: Hx Coronary Artery Disease, Hx DVT, Hx Heart Attack, Hx Hypercholesterolemia, Hx Hypertension, Hx Peripheral Vascular Disease Renal/ Medical History: Denies: Hx Peritoneal Dialysis Past Surgical History: Reports: Hx Coronary Artery Bypass Graft, Hx Open Heart Surgery, Hx Vascular Surgery - Immunizations Hx Diphtheria, Pertussis, Tetanus Vaccination: Yes Review of Systems - Review of Systems Constitutional: See HPI EENT: No symptoms reported Cardiovascular: See HPI Respiratory: No symptoms reported Gastrointestinal: No symptoms reported Genitourinary: No symptoms reported Male Genitourinary: No symptoms reported Musculoskeletal: No symptoms reported Skin: No symptoms reported Hematologic/Lymphatic: No symptoms reported Neurological/Psychological: No symptoms reported Physical Exam - Vital signs Vitals: Temp Pulse Resp BP Pulse Ox 97.4 F 75 16 95/63 L 100 10/09/19 16:48 10/09/19 16:48 10/09/19 16:48 10/09/19 16:48 10/09/19 16:48 - Notes Notes: GENERAL: Alert, interacts well. No acute distress. HEAD: Normocephalic, atraumatic. EYES: Pupils equal, round, and reactive to light. Extraocular movements intact. ENT: Oral mucosa moist, tongue midline. Oropharynx unremarkable. Airway patent. Nares patent with minimal congestion, no nasal septal hematoma, TM's intact. NECK: Full range of motion. Supple. Trachea midline. LUNGS: Clear to auscultation bilaterally, no wheezes, rales, or rhonchi. No respiratory distress. Occasional mild cough. Midline chest scar consistent with CABG, left upper chest consistent with pacemaker. Nontender, unremarkable otherwise. HEART: Regular rate and rhythm. ABDOMEN: Soft, non-tender. Non-distended. Bowel sounds present in all 4 quadrants. EXTREMITIES: Moves all 4 extremities spontaneously. No edema, normal radial p ulses, bilateral dorsalis pedis pulses are somewhat faint. Normal temperature. No cyanosis. BACK: no cervical, thoracic, lumbar midline tenderness. No saddle anesthesia, normal distal neurovascular exam. Moves all extremities in full range of motion. NEUROLOGICAL: Alert and oriented x3. Normal speech. Cranial nerves II through XII grossly intact. PSYCH: Normal affect, normal mood. SKIN: Warm, dry, normal turgor. No rashes or lesions noted. Course - Re-evaluation Re-evalutation: Blood pressure was initially 80s systolic, improved to 90s, and now has normalized without intervention. Blood pressure most recently 105/79. Patient has minimal nasal congestion and occasional mild cough but clear lungs, no tachypnea or labored breathing, no chest pain, no palpitations, no nausea vomiting. Work-up pending but I suspect his hypotension is medication related. CBC shows borderline anemia without significant change from prior. No leukocytosis. Chemistry unremarkable except for elevated BUN and elevated creatinine compared to prior at 1.57. Urine shows elevated specific gravity. I suspect there is a component of overdiuresis which could have contributed to patient's lightheadedness and transient hypotension. EKG without concerning findings, chest x-ray negative, troponin negative. Troponin cycled and still negative. Performed orthostatic vital signs, patient did not have tachycardia, his blood pressure did not change, he did not have dizziness, he ambulated without any difficulty. Patient states he feels great and he is requesting discharge, he states he has a follow-up with his provider tomorrow morning. He is requesting a copy of his labs for his kidney functioning. I did discuss with Dr. Kannan gutierres. Patient will hold his next Lasix dose, perform close follow-up, and return for any concerning symptoms which I discussed in detail with patient and . They state appreciation and agreement. Stable at time of discharge. - Vital Signs Vital signs: Temp Pulse Resp BP Pulse Ox 98.1 F 90 19 116/77 99 10/09/19 23:03 10/09/19 20:21 10/09/19 23:03 10/09/19 23:03 10/09/19 23:03 - Laboratory Result Diagrams: 10/09/19 18:05 10/09/19 18:05 Laboratory results interpreted by me: 10/09/19 10/09/19 18:05 18:05 RBC 3.74 L Hgb 12.8 L Hct 35.2 L MCH 34.1 H MCHC 36.3 H RDW 14.1 H BUN 25 H Creatinine 1.59 H Est GFR ( Amer) 54 L Est GFR (MDRD) Non-Af 44 L Magnesium 2.4 H ALT 76 H - EKG Interpretation by Me Additional EKG results interpreted by me: EKG shows atrial sensed ventricular paced rhythm at a rate of 80, normal axis, no T wave inversions or ST segment changes in consecutive leads Discharge - Discharge Clinical Impression: Acute renal insufficiency Hypotension Qualifiers: Hypotension type: unspecified hypotension type Qualified Code(s): I95.9 - Hypotension, unspecified Condition: Stable Disposition: HOME, SELF-CARE Additional Instructions: Your overall work-up is reassuring including your heart work-up. However your chemistry does indicate that you have had slight over diuresis, you were given a small amount of fluid tonight, I recommend that you skip your morning dose of Lasix (furosemide). This was most likely because of your low blood pressure. Follow closely and have your kidney function rechecked. See chemistry labs provided. Return if you worsen including passing out, chest pain, fever, or any other con cerning or worsening symptoms. Referrals: MARLENE JOHN MD [Primary Care Provider] - Follow up as needed
[2019-10-09 20:35] LABS: APPEARANCE,URINE CLEAR; BILIRUBIN,URINE NEGATIVE (NEGATIVE); COLOR,URINE YELLOW; GLUCOSE, URINE NEGATIVE (NEGATIVE); KETONES,URINE NEGATIVE (NEGATIVE); LEUKOCYTE ESTERASE,URINE NEGATIVE (NEGATIVE); NITRITE,URINE NEGATIVE (NEGATIVE); PROTEIN,URINE NEGATIVE (NEGATIVE); UROBILINOGEN,URINE NEGATIVE mg/dL (<2.0)
--- NOTE | 2019-10-09 21:20 | EKG REPORT ---
SEVERITY:- ABNORMAL ECG - ATRIAL-SENSED VENTRICULAR-PACED RHYTHM : Confirmed by: Katie Bright 09-Oct-2019 21:19:23
[2019-10-09] MEDS ORDERED: NORMAL SALINE 500 ML IV ONE (21:56)
[2019-10-09 23:09] VITALS: BP 116/77
== END 2019-10-09 23:10 | disposition home or self-care (01) ==
LOC: ER 16:44
DX: I95.9 Hypotension, unspecified (principal); N28.9 Disorder of kidney and ureter, unspecified; R42 Dizziness and giddiness; R05 Cough; R09.81 Nasal congestion; R00.0 Tachycardia, unspecified; I25.10 Atherosclerotic heart disease of native coronary artery without angina pectoris; I73.9 Peripheral vascular disease, unspecified; I25.2 Old myocardial infarction; I10 Essential (primary) hypertension; Z79.82 Long term (current) use of aspirin; Z79.899 Other long term (current) drug therapy; Z95.5 Presence of coronary angioplasty implant and graft; Z95.1 Presence of aortocoronary bypass graft; Z79.02 Long term (current) use of antithrombotics/antiplatelets; Z95.810 Presence of automatic (implantable) cardiac defibrillator; Z86.718 Personal history of other venous thrombosis and embolism
CPT/HCPCS: 93005; 99285; 96360; 36415; 87040; 83735; 85025; 80053; 81001; 84484; 71045; 93010; J7040